=== PATIENT | male | born 1945 | race African-American/Black ===

== ENCOUNTER 2017-06-14 00:28 | Inpatient (IN) | payer MEDICARE, OTHER ==
[~2017-06-14] VITALS: Ht 172.7 cm; Wt 68.0 kg
[2017-06-14] MEDS ORDERED: ONDANSETRON HCL 4MG/2ML VIAL IV STA (01:08)
[2017-06-14] MEDS ORDERED: SODIUM CHLORIDE 0.9% 1,000 ML IV ONE (01:08)
[2017-06-14] MEDS ORDERED: MORPHINE SULFATE 4 MG/ML CPJ (NOT FOR IM USE) IV ONE (01:15)
[2017-06-14 01:31] LABS: BASOPHILS % 0.2 % (0.0-2.0); EOSINOPHILS % 0.2 % (0.0-5.0); HEMATOCRIT. 39.2 % (42.0-52.0); HEMOGLOBIN. 13.6 g/dL (14.0-18.0); LYMPHOCYTES % 8.5 % (20.0-50.0); MEAN CORPUSCULAR HEMOGLOBIN 36.8 pg (28.0-32.0); MEAN CORPUSCULAR VOLUME 105.8 fL (80.0-94.0); MEAN PLATELET VOLUME 7.5 fl (7.4-10.4); MONOCYTES % 7.9 % (2.0-8.0); NEUTROPHILS % 83.2 % (40.0-76.0); PLATELET 178 x1000/uL (130-400); RED CELL DISTRIBUTION WIDTH 14.7 % (11.6-14.6)
[2017-06-14 01:34] LABS: PROTHROMBIN TIME 10.7 sec (9.4-11.6)
[2017-06-14 01:43] LABS: CARBON DIOXIDE 27 mEq/L (21-32); CHLORIDE 103 mEq/L (98-107); ETHANOL BLOOD 43 mg/dL; TROPONIN I < 0.02 ng/mL (0.00-0.04)
[2017-06-14] MEDS ORDERED: SODIUM CHLORIDE 0.9% 1000ML BAG (SEPSIS BOLUS) IV NR (03:30)
[2017-06-14] MEDS ORDERED: KCL 20MEQ/100ML PREMIX 100 ML IV NR (03:30)
[2017-06-14] MEDS ORDERED: MINERAL OIL ENEMA 133ML PR NR (04:00)
[2017-06-14] MEDS ORDERED: FENTANYL CITRATE/PF 50MCG/ML 2ML VIAL IV NR (04:00)
[2017-06-14 05:49] LABS: CLARITY URINE CLOUDY (CLEAR); COLOR URINE YELLOW (YELLOW); GLUCOSE URINE NEGATIVE (NEGATIVE); KETONES URINE 1+ (NEGATIVE); LEUKOCYTE ESTERASE URINE 3+ (NEGATIVE); NITRITE URINE POSITIVE (NEGATIVE); OCCULT BLOOD URINE TRACE (NEGATIVE); PROTEIN URINE 1+ (NEGATIVE); SPECIFIC GRAVITY URINE 1.018 (1.005-1.030); UROBILINOGEN URINE 0.2 E.U./dL (0.2-1.0)
[2017-06-14 06:26] LABS: *AMPHETAMINES SCREEN URINE NEGATIVE (NEGATIVE); *BARBITURATES SCREEN URINE NEGATIVE (NEGATIVE); *BENZODIAZEPINES SCREEN URINE NEGATIVE (NEGATIVE); *COCAINE SCREEN URINE NEGATIVE (NEGATIVE); CANNABINOID URINE SCREEN NEGATIVE (NEGATIVE); OPIATES URINE SCREEN PRESUMTIVE POSITIVE (NEGATIVE); PHENCYCLIDINE URINE SCREEN NEGATIVE (NEGATIVE)
[2017-06-14 07:13] LABS: METHADONE URINE SCREEN NEGATIVE (NEGATIVE)
[2017-06-14] MEDS ORDERED: IPRATROPIUM/ALBUTEROL 0.5-3(2.5)MG/3ML NEB INH PRN (07:45)
[2017-06-14] MEDS ORDERED: LORAZEPAM 2MG/ML CPJ IV PRN (07:45)
[2017-06-14] MEDS ORDERED: CLONIDINE 0.1MG TABLET PO PRN (07:45)
[2017-06-14] MEDS ORDERED: MORPHINE SULFATE 4 MG/ML CPJ (NOT FOR IM USE) IV PRN (07:45)
[2017-06-14] MEDS ORDERED: BISACODYL 5MG TABLET PO PRN ×2 (07:45)
[2017-06-14] MEDS ORDERED: DOCUSATE SODIUM 100MG CAPSULE PO PRN (07:45)
[2017-06-14] MEDS ORDERED: ACETAMINOPHEN 650MG SUPP PR PRN (07:45)
[2017-06-14] MEDS ORDERED: MAGNESIUM/ALUMINUM HYDROXIDE/SIMETHICONE 30ML UDC PO PRN (07:45)
[2017-06-14] MEDS ORDERED: DIPHENHYDRAMINE 50MG/ML VIAL IV PRN (07:45)
[2017-06-14] MEDS ORDERED: ONDANSETRON HCL 4MG/2ML VIAL IV PRN (07:45)
[2017-06-14] MEDS ORDERED: NA PHOS,M-B/NA PHOS,DI-BA ENEMA 118ML PR PRN (07:45)
[2017-06-14] MEDS ORDERED: GUAIFENESIN 200MG/10ML SUGAR FREE UDC PO PRN (07:45)
[2017-06-14] MEDS ORDERED: ACETAMINOPHEN 650MG/20.3ML UDC GT PRN (07:45)
[2017-06-14] MEDS ORDERED: IOHEXOL-300 100 ML BOTTLE ONE (12:46)
[2017-06-14] MEDS ORDERED: DIATR MEGLU/DIATRIZOATE SOLN 120ML ONE (12:46)
[2017-06-14] MEDS ORDERED: SODIUM CHLORIDE 0.9% 10ML VIAL ONE (12:46)
[2017-06-14 13:45] LABS: CARCINO EMBRYONIC ANTIGEN 4.3 ng/ml
[2017-06-14 13:48] LABS: PROSTRATE SPECIFIC AG TOTAL 0.02 ng/mL (0.0-4.0)
[2017-06-14 16:40] VITALS: BP 165/97
[2017-06-14] MEDS ORDERED: BISACODYL 5MG TABLET PO NR (17:00)
[2017-06-14 17:30] VITALS: BP 165/97
[2017-06-14] MEDS ORDERED: TRAM50TA3 PO (17:58)
[2017-06-14] MEDS ORDERED: VIAG25 PO (17:58)
[2017-06-14] MEDS ORDERED: MAGNESIUM CITRATE 300ML SOLUTION PO NR (18:00)
[2017-06-14 20:00] VITALS: BP 152/91
[2017-06-15] VITALS: BP 154/81
[2017-06-15 04:00] VITALS: BP 131/83
[2017-06-15 07:28] LABS: CHLORIDE 104 mEq/L (98-107)
[2017-06-15 07:46] LABS: BASOPHILS % 0.2 % (0.0-2.0); EOSINOPHILS % 0.5 % (0.0-5.0); HEMATOCRIT. 34.6 % (42.0-52.0); LYMPHOCYTES % 17.2 % (20.0-50.0); MEAN CORPUSCULAR HEMOGLOBIN 37.1 pg (28.0-32.0); MEAN CORPUSCULAR VOLUME 106.7 fL (80.0-94.0); MEAN PLATELET VOLUME 8.1 fl (7.4-10.4); MONOCYTES % 14.9 % (2.0-8.0); NEUTROPHILS % 67.2 % (40.0-76.0); PLATELET 161 x1000/uL (130-400); RED BLOOD CELL COUNT 3.24 mill/uL (4.7-6.1); RED CELL DISTRIBUTION WIDTH 14.4 % (11.6-14.6)
[2017-06-15 07:57] LABS: CARBON DIOXIDE 26 mEq/L (21-32); HDL CHOLESTEROL 74 mg/dL (40-59); LDL CHOLESTEROL 53 mg/dL (5-100)
[2017-06-15 08:00] VITALS: BP 160/83
[2017-06-15] MEDS: SODIUM CHLORIDE 0.45% 1,000 ML IV SCH ×2 (08:51→22:56)
[2017-06-15] MEDS: ENOXAPARIN 40MG/0.4ML SYR SUBCUT SCH (10:30)
[2017-06-15 12:00] VITALS: BP 156/88
[2017-06-15 16:00] VITALS: BP 144/80
[2017-06-15 20:00] VITALS: BP 136/79
[2017-06-15] MEDS ORDERED: MAGNESIUM CITRATE 300ML SOLUTION PO SCH (21:00)
[2017-06-15] MEDS: SODIUM CHLORIDE 0.9% INJ 3ML FLUSH IVF SCH (22:28)
[2017-06-16] VITALS: BP 165/87
[2017-06-16 04:00] VITALS: BP 165/87
[2017-06-16] MEDS: SODIUM CHLORIDE 0.9% INJ 3ML FLUSH IVF SCH (07:13)
[2017-06-16 08:00] VITALS: BP 160/85
[2017-06-16] MEDS: ENOXAPARIN 40MG/0.4ML SYR SUBCUT SCH (08:42)
[2017-06-16] MEDS: SODIUM CHLORIDE 0.45% 1,000 ML IV SCH (09:15)
[2017-06-16 11:37] VITALS: BP 137/83
[2017-06-16 12:54] VITALS: BP 137/83
== END 2017-06-16 14:20 | disposition home or self-care (01) | DRG 392 ==
LOC: ER 00:28 → 6EST 04:08 → ENRESERV 15:40
PROVIDERS: ADMIT Family Medicine; ATTEND Family Medicine
DX: K31.89 Other diseases of stomach and duodenum (principal); E87.2 Acidosis; N39.0 Urinary tract infection, site not specified; D63.8 Anemia in other chronic diseases classified elsewhere; R73.9 Hyperglycemia, unspecified; R91.1 Solitary pulmonary nodule; E87.6 Hypokalemia; I10 Essential (primary) hypertension; N40.0 Benign prostatic hyperplasia without lower urinary tract symptoms
CPT/HCPCS: 36415; 74176; 74177; 80053; 80061; 80305; 81001; 82378; 83605; 83690; 83880; 84153; 84484; 85025; 85610; 93005; 96361; 96365; 96366; 96375; 99291; A4216; G0482; J1650; J2270; J2405; J3010; J7030; Q9963; Q9967